=== PATIENT | female | born 1970 | race Caucasian/White ===

== ENCOUNTER 2019-09-18 09:28 | Emergency (ER) | payer SELFPAY | END 2019-09-18 10:30 | disposition home or self-care (01) | LOC: NAV ERS 09:28 | DX: J06.9 Acute upper respiratory infection, unspecified (principal); I10 Essential (primary) hypertension; Z79.899 Other long term (current) drug therapy | CPT/HCPCS: 87081; 87430; 87804; 99283 ==

== ENCOUNTER 2023-05-30 19:08 | Emergency (ER) | payer OTHER ==
[2023-05-30] MEDS ORDERED: EPINEPHrine 1 MG/ML AMP ONE (19:13)
[2023-05-30] MEDS ORDERED: diphenhydrAMINE 50 MG/ML VIAL ONE (19:13)
[2023-05-30] MEDS ORDERED: methylPREDNISolone Sod Succ/PF 125 MG/2 ML VIAL ONE (19:29)
== END 2023-05-30 20:40 | disposition home or self-care (01) ==
LOC: NAV ERS 19:08
DX: T78.2XXA Anaphylactic shock, unspecified, initial encounter (principal); I10 Essential (primary) hypertension
CPT/HCPCS: 96372; 96374; 96375; J0171; J1200; J2930

== ENCOUNTER 2023-08-13 11:31 | Emergency (ER) | payer OTHER ==
[2023-08-13] MEDS ORDERED: cloNIDine 0.1 MG TAB ONE (12:03)
[2023-08-13] MEDS ORDERED: Acetaminophen 500 MG TAB ONE (12:45)
== END 2023-08-13 13:00 | disposition home or self-care (01) ==
LOC: NAV ERS 11:31
DX: R05.9 Cough, unspecified (principal); I10 Essential (primary) hypertension; Z79.899 Other long term (current) drug therapy
CPT/HCPCS: 71046; 87635; 87804